=== PATIENT | female | born 1975 | race African-American/Black ===

== ENCOUNTER 2018-04-07 20:16 | Emergency (ER) | payer BC, OTHER ==
[2018-04-07 20:20] VITALS: BP 112/68; PULSE 65; TEMP 98; BMI 34.9
[2018-04-07] MEDS ORDERED: KETOROLAC TROMETHAMINE 60 MG/2 ML VIAL IM ONE (20:29)
--- NOTE | 2018-04-07 20:47 | PDOC ---
History of Present Illness - General Chief Complaint: Pain Stated Complaint: FOOT PAIN Time Seen by Provider: 04/07/18 20:22 History Source: Patient - History of Present Illness Occurred: reports: this evening Lower Extremity Pain Location: left: foot, ankle Past History - Past Medical History Allergies/Adverse Reactions: Allergies Allergy/AdvReac Type Severity Reaction Status Date / Time No Known Allergies Allergy Verified 04/07/18 20:20 COPD: No Thyroid Disease: Yes - Suicide/Smoking/Psychosocial Hx Smoking History: Never smoked Review of Systems - Review of Systems Constitutional: No: Chills, Fever Musculoskeletal: Yes: Joint Pain, Joint Swelling *Physical Exam - Vital Signs Last Vital Signs Temp Pulse Resp BP Pulse Ox 98 F 65 18 112/68 100 04/07/18 20:16 04/07/18 20:16 04/07/18 20:16 04/07/18 20:16 04/07/18 20:16 - Physical Exam General Appearance: Yes: Appropriately Dressed, Mild Distress HEENT: positive: Normal Voice Respiratory/Chest: negative: Respiratory Distress Extremity: positive: Tender (w/ mild swelling to anterior L ankle and lateral foot) Integumentary: positive: Dry, Warm Neurologic: positive: Fully Oriented, Alert, Normal Mood/Affect ED Treatment Course - RADIOLOGY Radiology Studies Ordered: Category Date Time Status ANKLE & FOOT-LEFT* [RAD] Stat Radiology 04/07/18 20:29 Ordered Medical Decision Making - Medical Decision Making 04/07/18 20:46 42-year-old female, no significant history here with sudden onset severe L ankle pain that started upon standing tonight per patient. No obvious injuries. No history of similar episode. Has not been able to bear weight since. Has not taken anything for pain. See exam M/l L ankle sprain -pain control -XR 04/07/18 21:20 Xray neg for fx. Pain significantly improved with Toradol, but still has some pain on weight bearing. Baltazar bandage applied and crutches given. DC to take Motrin [id number] for pain. Ortho referral as needed *DC/Admit/Observation/Transfer Diagnosis at time of Disposition: Ankle sprain Qualifiers: Encounter type: initial encounter Involved ligament of ankle: unspecified ligament Laterality: left Qualified Code(s): S93.402A - Sprain of unspecified ligament of left ankle, initial encounter - Discharge Dispostion Disposition: HOME Condition at time of disposition: Improved - Referrals Referrals: Moises Cordon MD [Staff Physician] - - Patient Instructions Printed Discharge Instructions: Ankle Sprain Additional Instructions: Take motrin as needed for pain. If pain persists after 2 weeks, please follow-up with Dr. Cordon of orthopedics - Post Discharge Activity Forms/Work/School Notes: Back to Work
[2018-04-07] MEDS ORDERED: KETOROLAC TROMETHAMINE 60 MG/2 ML VIAL ONE (20:49)
[2018-04-08] MEDS ORDERED: PT OWN MED DRAWER 7, Y5N ONE (11:05)
== END 2018-04-07 22:00 | disposition home or self-care (01) ==
LOC: JERFT 20:16
PROC: 3E0233Z Introduction of Anti-inflammatory into Muscle, Percutaneous Approach (ICD-10-PCS; principal; 2018-04-07)
DX: S93.402A Sprain of unspecified ligament of left ankle, initial encounter (principal); X58.XXXA Exposure to other specified factors, initial encounter; Y93.89 Activity, other specified; Y92.89 Other specified places as the place of occurrence of the external cause; Y99.8 Other external cause status
CPT/HCPCS: 73610-TC-LT-FY; 73630-TC-LT; 99281-25